=== PATIENT | male | born 1955 | race Caucasian/White ===

== ENCOUNTER 2022-12-30 05:45 | Day surgery (SDC) | payer MEDICARE, BC ==
[2022-12-30] MEDS ORDERED: Lactated Ringers 1,000 ML IV ONE (05:46)
[2022-12-30] MEDS ORDERED: Pregabalin 25 MG Cap PO SCH (06:00)
[2022-12-30] MEDS ORDERED: Morphine 8 MG, EPINEPHrine 0.3 MG, Cefuroxime 750 MG, Ketorolac 30 MG, Sodium Chloride ... PRN ×10 (06:00)
[2022-12-30] MEDS ORDERED: Acetaminophen 325 MG Tab PO SCH (06:00)
[2022-12-30] MEDS ORDERED: oxyCODONE ER 10 MG TAB.ER PO SCH (06:00)
[2022-12-30] MEDS ORDERED: Vancomycin 1 GM SDV ONE (06:11)
[2022-12-30] MEDS ORDERED: Tranexamic Acid 1,000 MG/10 ML Vial ONE (06:11)
[2022-12-30] MEDS ORDERED: Triamcinolone Acetonide 40 MG/ML 1 ML SDV ONE (06:28)
[2022-12-30] MEDS ORDERED: Bupivacaine 0.25% 10 ML SDV ONE (06:28)
[2022-12-30] MEDS ORDERED: Lactated Ringers 1,000 ML IV SCH (06:30)
[2022-12-30] MEDS ORDERED: Propofol 200 MG/20 ML SDV ONE ×3 (06:39→07:45)
[2022-12-30] MEDS ORDERED: fentaNYL 100 MCG/2 ML SDV ONE ×2 (06:39→07:22)
[2022-12-30] MEDS ORDERED: Lidocaine 1% 4 ML ONE (06:39)
[2022-12-30] MEDS ORDERED: Ropivacaine 0.5% 5 MG/ML 30 ML SDV ONE (06:43)
[2022-12-30] MEDS ORDERED: Lidocaine 4% Crm 5 Gm with Transparent Dressing Kit TOP PRN (07:00)
[2022-12-30] MEDS ORDERED: ceFAZolin 2 GM Vial ONE (07:04)
[2022-12-30] MEDS ORDERED: Ketamine 500 mg/10 ML MDV ONE (07:15)
[2022-12-30] MEDS ORDERED: fentaNYL 100 MCG/2 ML SDV IVPUSH PRN (07:34)
[2022-12-30] MEDS ORDERED: Ondansetron 4 MG/2 ML SDV IVPUSH PRN (07:34)
[2022-12-30] MEDS ORDERED: HYDROmorphone 0.5 MG/0.5 ML Syringe IVPUSH PRN (07:34)
[2022-12-30] MEDS ORDERED: Dexamethasone 4 MG/ML 5 ML MDV ONE (08:03)
[2022-12-30] MEDS ORDERED: Cyclobenzaprine 10 MG Tab PO PRN (08:57)
[2022-12-30] MEDS ORDERED: oxyCODONE 5 MG Tab PO PRN (08:57)
== END 2022-12-30 12:57 | disposition home or self-care (01) ==
LOC: JD.SDS 05:45
PROVIDERS: ATTEND Orthopaedic Surgery
DX: M17.0 Bilateral primary osteoarthritis of knee (principal); G89.29 Other chronic pain; G47.33 Obstructive sleep apnea (adult) (pediatric); E78.5 Hyperlipidemia, unspecified; I10 Essential (primary) hypertension; D68.9 Coagulation defect, unspecified; E66.9 Obesity, unspecified; Z85.46 Personal history of malignant neoplasm of prostate; Z79.899 Other long term (current) drug therapy; Z87.891 Personal history of nicotine dependence; Z68.41 Body mass index [BMI] 40.0-44.9, adult
CPT/HCPCS: 0055T; 20610; 27447; 64450; 73560; 97116; 97161; A9270; C1713; C1776; J0171; J0690; J0697; J1100; J1885; J2270; J2704; J2795; J3010; J3301; J3370; J3490; J7120; 01402; 01480

== ENCOUNTER 2023-12-29 07:47 | Day surgery (SDC) | payer MEDICARE, BC ==
[~2023-12-29 07:47] MED LIST: Acetaminophen 325 MG Tab PO ONE; Pregabalin 25 MG Cap PO ONE; Sodium Chloride 0.9% 10 ML Syringe FLUSH PRN; Sodium Chloride 0.9% 10 ML Syringe FLUSH SCH; oxyCODONE ER 10 MG TAB.ER PO ONE
[2023-12-29] MEDS ORDERED: HYDROmorphone 0.5 MG/0.5 ML Syringe IVPUSH PRN (08:19)
[2023-12-29] MEDS ORDERED: fentaNYL 100 MCG/2 ML SDV IVPUSH PRN (08:19)
[2023-12-29] MEDS ORDERED: Ondansetron 4 MG/2 ML SDV IVPUSH PRN (08:19)
[2023-12-29] MEDS: Lactated Ringers 1,000 ML IV SCH (08:30)
[2023-12-29] MEDS ORDERED: ceFAZolin 2 GM Vial ONE ×2 (08:32)
[2023-12-29] MEDS ORDERED: fentaNYL 100 MCG/2 ML SDV ONE (08:32)
[2023-12-29] MEDS ORDERED: Ropivacaine 0.5% 5 MG/ML 30 ML SDV ONE (08:32)
[2023-12-29] MEDS ORDERED: Lidocaine 1% 5 ML VIAL ONE (08:32)
[2023-12-29] MEDS ORDERED: Propofol 200 MG/20 ML SDV ONE ×3 (08:32→09:38)
[2023-12-29] MEDS ORDERED: EPINEPHrine 1 MG/ML SDV ONE (08:32)
[2023-12-29] MEDS ORDERED: Midazolam 1 MG/ML 2 ML SDV ONE (08:32)
[2023-12-29] MEDS ORDERED: Dexamethasone 4 MG/ML 5 ML MDV ONE (08:56)
[2023-12-29] MEDS ORDERED: Lactated Ringers 1,000 ML ONE (08:59)
[2023-12-29] MEDS ORDERED: Ketamine 200 MG/20 ML MDV ONE (09:05)
[2023-12-29] MEDS: Tranexamic Acid 1,000 MG/10 ML Vial ONE (10:05)
[2023-12-29] MEDS: Vancomycin 1 GM SDV ONE (10:05)
[2023-12-29] MEDS: oxyCODONE 5 MG Tab PO PRN (12:01)
[2023-12-29] MEDS: Morphine 8 MG, EPINEPHrine 0.3 MG, Cefuroxime 750 MG, Ketorolac 30 MG, Sodium Chloride ... PRN (15:22)
== END 2023-12-29 12:55 | disposition home or self-care (01) ==
LOC: JD.SDS 07:47
PROVIDERS: ATTEND Orthopaedic Surgery
DX: M17.11 Unilateral primary osteoarthritis, right knee (principal); I10 Essential (primary) hypertension; E78.5 Hyperlipidemia, unspecified; D68.9 Coagulation defect, unspecified; G47.33 Obstructive sleep apnea (adult) (pediatric); Z87.891 Personal history of nicotine dependence; Z79.899 Other long term (current) drug therapy
CPT/HCPCS: 0055T; 27447; 64447; 73560; 97110; 97161; A9270; C1713; C1776; J0171; J0690; J0697; J1100; J1596; J1885; J2250; J2270; J2704; J2795; J3010; J3370; J7120; 01402; J3490